=== PATIENT | female | born 1960 | race Hispanic/Latino ===

== ENCOUNTER 2016-12-16 14:07 | Emergency (ER) | payer MEDICARE, OTHER ==
[2016-12-16 14:08] VITALS: BMI 29.5
--- NOTE | 2016-12-16 15:13 | C.PDOC ---
History Of Present Illness 55 yr old female presents to the ER requesting detox from opioids. Patient states she was seen by Dr. Alvarado who gave her the wrong medication, then was refereed to Dr. Giordano who refused to see her since she had the wrong insurance. Patient states she has been to few different places and has been turned away from all. Patient is here stating she is withdrawing and wants detox. Patient denies fever, chest pain, SOB, nausea, vomiting, suicidal ideation, weakness or numbness. Time Seen by Provider: 12/16/16 15:05 Chief Complaint (Nursing): Anxiety History Per: Patient History/Exam Limitations: no limitations Onset/Duration Of Symptoms: Persistent Past Medical History Reviewed: Historical Data, Nursing Documentation, Vital Signs Vital Signs: Last Vital Signs Temp 98 F 12/16/16 16:24 Pulse 77 12/16/16 16:24 Resp 18 12/16/16 16:24 BP 150/100 H 12/16/16 16:24 Pulse Ox 99 12/16/16 16:24 - Medical History PMH: Anxiety, Arthritis, Asthma, Back Problems, Depression, Fibromyalgia, Gall Bladder Disease, HTN, Kidney Stones, Migraine, Chronic Kidney Disease, Chronic Pain Surgical History: Cholecystectomy (Laparoscopic), Endoscopy - [facility] Procedures EYELID REPAIR NEC (04/29/00) INJECT/INFUSE NEC (07/20/13) MYRINGOTOMY W INTUBATION (07/18/03) OTOSCOPY (12/14/03) REMOVE EYELID LESION NOS (04/29/00) Family History: States: No Known Family Hx - Social History Hx Tobacco Use: No Hx Alcohol Use: No Hx Substance Use: No - Immunization History Hx Tetanus Toxoid Vaccination: Yes Hx Influenza Vaccination: No Hx Pneumococcal Vaccination: No Review Of Systems Except As Marked, All Systems Reviewed And Found Negative. Constitutional: Negative for: Fever Cardiovascular: Negative for: Chest Pain Respiratory: Negative for: Shortness of Breath Gastrointestinal: Negative for: Nausea, Vomiting Neurological: Negative for: Weakness, Numbness Psych: Negative for: Suicidal ideation Physical Exam - Physical Exam Appears: Well, Non-toxic, No Acute Distress Skin: Warm, Dry, No Rash Head: Atraumatic, Normacephalic Oral Mucosa: Moist Neck: Normal, Normal ROM, Supple Chest: Symmetrical, No Tenderness Cardiovascular: Rhythm Regular, No Murmur Respiratory: Normal Breath Sounds, No Rales, No Wheezing Gastrointestinal/Abdominal: Normal Exam, Soft, No Tenderness, No Guarding, No Rebound Extremity: Normal ROM, No Swelling Neurological/Psych: Oriented x3, Normal Speech, Normal Motor ED Course And Treatment ECG: Interpreted By Me ECG Rhythm: Sinus Rhythm, L BBB ECG Interpretation: No Acute Changes, No Changes From Prior O2 Sat by Pulse Oximetry: 98 Pulse Ox Interpretation: Normal Progress Note: Patient presents with multiple complaints including being given the wrong medications last month by a pain management doctor Dr monte which has caused withdrawl symptoms. Patient was at pain management Dr prasanna prior to arrival in ED and was not evaluated due to insurance issues as per patient. Patient reports withdrawl symptoms and requests help with this issue. Case discussed and patient evaluated by drag out worker but patient refused list of outpatient services provided and detox admission. Patient was provided with lists of outpatient services for further evaluation and follow up. Patient reports she contacted Dr Pickard while in ED but does not want detox. Patient requesting management of her chronic pain and anxiety meds. Patient was encouraged by crisis and myself to follow up as outpatient with her PMD and pain management doctor. Discharged in stable condition Reassessment Condition: Unchanged Disposition Counseled Patient/Family Regarding: Studies Performed, Diagnosis, Need For Followup - Disposition Referrals: [facility] [Outside] [facility] [Outside] Disposition: HOME/ ROUTINE Disposition Time: 16:15 Condition: STABLE Additional Instructions: Follow up with PMD for further evaluation Instructions: Anxiety (ED) - POA Present On Arrival: None - Clinical Impression Clinical Impression: Anxiety, Opiate withdrawal - PA / FOREST MANAGEMENT TEACHER / Resident Statement MD/DO has reviewed & agrees with the documentation as recorded. - Scribe Statement The provider has reviewed the documentation as recorded by the Scribe Nessa Estrada All medical record entries made by the Scribe were at my direction and personally dictated by me. I have reviewed the chart and agree that the record accurately reflects my personal performance of the history, physical exam, medical decision making, and the department course for this patient. I have also personally directed, reviewed, and agree with the discharge instructions and disposition.
[2016-12-16 16:26] VITALS: BP 150/100; PULSE 77; RESP 18; TEMP 98
[2016-12-16 16:41] VITALS: O2SAT 98
== END 2016-12-16 16:55 | disposition home or self-care (01) ==
LOC: C.ER 14:07
DX: F41.9 Anxiety disorder, unspecified (principal); F11.23 Opioid dependence with withdrawal

== ENCOUNTER 2017-01-23 11:05 | Emergency (ER) | payer MEDICARE, SELFPAY ==
[2017-01-23 11:16] VITALS: BMI 30.7
--- NOTE | 2017-01-23 11:49 | C.PDOC ---
History Of Present Illness A 56 y/o female with previous medical history including arthritis, fibromyalgia , chronic pain, and sciatica, presents to the ER c/o back pain for several days. Patient reports that the pain started in the neck and radiated to the lower back. Patient notes her PMD changed her medication again and was given Meloxicam with no relief in pain. Patient denies injury, fall, fever, chills, numbness nor weakness, or urinary symptoms. Time Seen by Provider: 01/23/17 11:21 Chief Complaint (Nursing): Back Pain History Per: Patient History/Exam Limitations: no limitations Onset/Duration Of Symptoms: Days Current Symptoms Are (Timing): Still Present Quality Of Discomfort: "Pain" Severity: Mild Previous Symptoms: Neck Pain Associated Symptoms: denies: New Weakness, New Numbness Recent travel outside of the [place]: No Additional History Per: Patient Past Medical History Reviewed: Historical Data, Nursing Documentation, Vital Signs Vital Signs: Last Vital Signs Temp 98.5 F 01/23/17 12:52 Pulse 92 H 01/23/17 12:52 Resp 16 01/23/17 12:52 BP 151/93 H 01/23/17 12:52 Pulse Ox 96 01/23/17 12:52 - Medical History PMH: Anxiety, Arthritis, Asthma, Back Problems, Depression, Fibromyalgia, Gall Bladder Disease, HTN, Kidney Stones, Migraine, Chronic Kidney Disease, Chronic Pain Surgical History: Cholecystectomy (Laparoscopic), Endoscopy - [facility] Procedures EYELID REPAIR NEC (04/29/00) INJECT/INFUSE NEC (07/20/13) MYRINGOTOMY W INTUBATION (07/18/03) OTOSCOPY (12/14/03) REMOVE EYELID LESION NOS (04/29/00) Family History: States: Unknown Family Hx - Social History Hx Tobacco Use: No Hx Alcohol Use: No Hx Substance Use: No - Immunization History Hx Tetanus Toxoid Vaccination: Yes Hx Influenza Vaccination: No Hx Pneumococcal Vaccination: No Review Of Systems Except As Marked, All Systems Reviewed And Found Negative. Constitutional: Negative for: Fever, Chills, Other (Injury. Fall) Genitourinary: Negative for: Dysuria, Incontinence, Hematuria Musculoskeletal: Positive for: Back Pain Neurological: Negative for: Weakness, Numbness Physical Exam - Physical Exam Appears: Non-toxic, No Acute Distress (Uncomfortable) Skin: Warm, Dry Head: Atraumatic, Normacephalic Eye(s): bilateral: Normal Inspection Neck: Normal ROM, No Midline Cervical Tenderness, Paracervical Tenderness ( Tenderness to the trapezius muscle), Supple Cardiovascular: Rhythm Regular, No Murmur Respiratory: Normal Breath Sounds, No Rales, No Rhonchi, No Wheezing Gastrointestinal/Abdominal: Soft, No Tenderness, No Guarding, No Rebound Back: Normal Inspection, No CVA Tenderness, No Vertebral Tenderness, Paraspinal Tenderness (lumbosacral) Extremity: Bilateral: Atraumatic, No Pedal Edema, Normal Color And Temperature, Normal ROM Neurological/Psych: Oriented x3, Normal Speech, Other (No focal deficit) ED Course And Treatment O2 Sat by Pulse Oximetry: 97 (RA) Pulse Ox Interpretation: Normal Medical Decision Making Medical Decision Makin y.o female with chronic back pain, patient with multiple allergies Plan: Morphine IM [facility] reviewed 01/07/2017 ALPRAZOLAM 0.25 MG TABLET 30.0 12/22/2016 ALPRAZOLAM 0.25 MG TABLET 30.0 12/09/2016 ALPRAZOLAM 0.25 MG TABLET 30.0 12/06/2016 ENDOCET 5-325 TABLET 56.0 On reassessment, patient is resting comfortably, with improvement of back pain. Patient remains afebrile, with no bony tenderness, extremity numbness or weakness, or abdominal pain. Patient is ambulatory in the emergency department with no signs of discomfort. Patient was advised to follow up with physician/ clinic in 1-2 days. Disposition Counseled Patient/Family Regarding: Diagnosis, Need For Followup - Disposition Referrals: Abel Ayoub MD [Staff Provider] - Disposition: HOME/ ROUTINE Disposition Time: 12:29 Condition: STABLE Additional Instructions: follow up with your primary physician for further evaluation Instructions: Chronic Back Pain (ED) - POA Present On Arrival: None - Clinical Impression Clinical Impression: Chronic back pain - Scribe Statement The provider has reviewed the documentation as recorded by the Scribshahnaz allen All medical record entries made by the Scribe were at my direction and personally dictated by me. I have reviewed the chart and agree that the record accurately reflects my personal performance of the history, physical exam, medical decision making, and the department course for this patient. I have also personally directed, reviewed, and agree with the discharge instructions and disposition.
[2017-01-23] MEDS ORDERED: Morphine 4 MG/ML VIAL ONE (11:50)
[2017-01-23 12:53] VITALS: BP 151/93; PULSE 92; RESP 16; TEMP 98.5
[2017-01-23 13:13] VITALS: O2SAT 97
== END 2017-01-23 12:53 | disposition home or self-care (01) ==
LOC: C.ER 11:05
DX: M54.9 Dorsalgia, unspecified (principal); G89.29 Other chronic pain
CPT/HCPCS: 96372; 99284; J2270

== ENCOUNTER 2017-01-25 08:19 | Emergency (ER) | payer MEDICARE, SELFPAY ==
[2017-01-25 08:20] VITALS: BMI 30.7
[2017-01-25 08:35] VITALS: BP 147/95; PULSE 99; RESP 20; TEMP 98.2; O2SAT 95
--- NOTE | 2017-01-25 09:03 | C.PDOC ---
History Of Present Illness 56 yo female, hx of fibromyalgia, presents with rash and "burning " across her chest. pt states started yesterday, as "Burning rash" across chest. pt states rash improving now. no fevers, trauma or other complaints. noted pt has been seen numerous times for various complaints, including back pain 2 days ago. Time Seen by Provider: 01/25/17 08:56 Chief Complaint (Nursing): Allergic Reaction Past Medical History Reviewed: Historical Data, Nursing Documentation, Vital Signs Vital Signs: Last Vital Signs Temp 98.2 F 01/25/17 08:27 Pulse 99 H 01/25/17 08:27 Resp 20 01/25/17 08:27 BP 147/95 H 01/25/17 08:27 Pulse Ox 95 01/25/17 08:27 - Medical History PMH: Anxiety, Arthritis, Asthma, Back Problems, Depression, Fibromyalgia, Gall Bladder Disease, HTN, Kidney Stones, Migraine, Chronic Kidney Disease, Chronic Pain Surgical History: Cholecystectomy (Laparoscopic), Endoscopy - [facility] Procedures EYELID REPAIR NEC (04/29/00) INJECT/INFUSE NEC (07/20/13) MYRINGOTOMY W INTUBATION (07/18/03) OTOSCOPY (12/14/03) REMOVE EYELID LESION NOS (04/29/00) Family History: States: Unknown Family Hx - Social History Hx Tobacco Use: No Hx Alcohol Use: No Hx Substance Use: No - Immunization History Hx Tetanus Toxoid Vaccination: No Hx Influenza Vaccination: No Hx Pneumococcal Vaccination: No Review Of Systems Except As Marked, All Systems Reviewed And Found Negative. Skin: Positive for: Rash Physical Exam - Physical Exam Appears: Well, No Acute Distress Skin: Normal Color, Warm, Dry Eye(s): bilateral: Normal Inspection, PERRL, EOMI Nose: Normal Throat: Normal Neck: Normal Chest: Other (no visible rash) Cardiovascular: Rhythm Regular Respiratory: Normal Breath Sounds Gastrointestinal/Abdominal: Normal Exam Back: Normal Inspection Extremity: Normal ROM ED Course And Treatment O2 Sat by Pulse Oximetry: 95 Medical Decision Making Medical Decision Making: ekg nsr 99 old lbbb. pt reports rash now resolved. advised supportive treatment , pmd followup. Disposition - Disposition Referrals: [facility] [Outside] [facility] [Outside] Yancy Claire MD [Medical Doctor] - Disposition: HOME/ ROUTINE Disposition Time: 09:03 Condition: STABLE Additional Instructions: please follow up with your doctor. and specialist. return to er with worsening symptoms or concerns. Prescriptions: DiphenhydrAMINE [Benadryl] 25 mg PO Q4H PRN #20 cap PRN Reason: Rash Instructions: Acute Rash (ED) - Clinical Impression Clinical Impression: Rash
--- NOTE | 2017-02-16 12:21 | CARD ---
APPROVED REPORT EKG Measurement Heart [id number] DC [id number] <Conclusion> Normal sinus rhythm Left bundle branch block Abnormal ECG
== END 2017-01-25 09:12 | disposition home or self-care (01) ==
LOC: C.ER 08:19
DX: R21 Rash and other nonspecific skin eruption (principal)

== ENCOUNTER 2017-02-08 16:56 | Emergency (ER) | payer MEDICARE, SELFPAY ==
[2017-02-08 16:56] VITALS: BMI 30.7
[2017-02-08] MEDS ORDERED: Aspirin 325 mg EC Tablets PO STA (17:30)
[2017-02-08 17:55] LABS: BASO # 0.1 K/uL (0.0-0.2); BASO % 0.8 % (0.0-2.0); EOS # 0.2 K/uL (0.0-0.7); EOS % 2.6 % (0.0-4.0); LYMPH # 2.1 K/uL (1.0-4.3); LYMPH % 23.5 % (20.0-40.0); MEAN CELL VOLUME 86.7 fL (81.0-99.0); MEAN CORPUSCULAR HGB CONC 33.4 g/dL (33.0-37.0); MEAN PLATELET VOLUME 7.6 fL (7.2-11.7); MONO # 0.7 K/uL (0.0-0.8); MONO % 8.1 % (0.0-10.0); NRBC % 0.1 % (0.0-2.0); RED CELL DISTRIBUTION WIDTH 14.4 % (11.5-14.5); WHITE BLOOD COUNT 9.1 K/uL (4.8-10.8)
[2017-02-08 17:58] LABS: CHLORIDE 102 mmol/L (98-107)
[2017-02-08 17:59] LABS: POTASSIUM 3.3 mmol/L (3.6-5.2); SODIUM 141 mmol/L (132-148)
[2017-02-08 18:01] LABS: ALB/GLOB RATIO 1.3 (1.0-2.1); ALKALINE PHOSPHATASE 116 U/L (38-126); ALT/SGPT 24 U/L (9-52); AST/SGOT 24 U/L (14-36); BILIRUBIN,TOTAL 0.7 mg/dL (0.2-1.3); BLOOD UREA NITROGEN 8 mg/dL (7-17); CARBON DIOXIDE 26 mmol/L (22-30); GFR AFRICAN-AMERICAN > 60; TOTAL PROTEIN 8.1 g/dL (6.3-8.3)
[2017-02-08 18:02] LABS: CALCIUM 8.9 mg/dl (8.6-10.4); GLUCOSE,RANDOM 108 mg/dL (65-105)
[2017-02-08 18:04] LABS: RBC URINE 1 /hpf (0-3); TRANSITIONAL EPITHIAL < 1 /hpf (0-3); URINE BACTERIA OCC (<OCC); URINE BILIRUBIN NEGATIVE (NEGATIVE); URINE BLOOD NEGATIVE (NEGATIVE); URINE COLOR Straw (YELLOW); URINE GLUCOSE (UA) NORMAL (Normal); URINE KETONE NEGATIVE (NEGATIVE); URINE LEUKOCYTE ESTERASE 1+ Leu/uL (Negative); URINE PROTEIN NEGATIVE (NEGATIVE); WBC URINE 10 /hpf (0-5)
--- NOTE | 2017-02-08 18:46 | C.PDOC ---
History Of Present Illness 56 y/o female brought in by EMS for evaluation of anxiety and chronic back pain. Pt with extensive percocet/xanax regimen recently discontinued. Pt lost to follow up for treatment of chronic pain/psych. Denies SOB, chest pain, vomiting or any other complaints. Time Seen by Provider: 02/08/17 17:19 Chief Complaint (Nursing): Back Pain History Per: Patient History/Exam Limitations: no limitations Onset/Duration Of Symptoms: Days Current Symptoms Are (Timing): Still Present Severity: Mild Associated Symptoms: Anxiety Involuntary Hold By: None Recent travel outside of the [place]: No Past Medical History Reviewed: Historical Data, Nursing Documentation, Vital Signs Vital Signs: Last Vital Signs Temp 98.7 F 02/08/17 19:20 Pulse 100 H 02/08/17 19:20 Resp 18 02/08/17 19:20 BP 162/94 H 02/08/17 19:20 Pulse Ox 98 02/08/17 19:20 - Medical History PMH: Anxiety, Arthritis, Asthma, Back Problems, Depression, Fibromyalgia, Gall Bladder Disease, HTN, Kidney Stones, Migraine, Chronic Kidney Disease, Chronic Pain Surgical History: Cholecystectomy (Laparoscopic), Endoscopy - [facility] Procedures EYELID REPAIR NEC (04/29/00) INJECT/INFUSE NEC (07/20/13) MYRINGOTOMY W INTUBATION (07/18/03) OTOSCOPY (12/14/03) REMOVE EYELID LESION NOS (04/29/00) Family History: States: Unknown Family Hx - Social History Hx Tobacco Use: No Hx Alcohol Use: No Hx Substance Use: No - Immunization History Hx Tetanus Toxoid Vaccination: No Hx Influenza Vaccination: No Hx Pneumococcal Vaccination: No Review Of Systems Except As Marked, All Systems Reviewed And Found Negative. Constitutional: Negative for: Fever Cardiovascular: Negative for: Chest Pain Respiratory: Negative for: Shortness of Breath Gastrointestinal: Negative for: Vomiting Musculoskeletal: Positive for: Back Pain Psych: Positive for: Anxiety Physical Exam - Physical Exam Appears: Non-toxic, No Acute Distress Skin: Warm, Dry, No Rash Head: Atraumatic, Normacephalic Neck: Normal, Normal ROM, Supple Chest: Symmetrical Cardiovascular: Rhythm Regular, No Murmur Respiratory: Normal Breath Sounds, No Rales, No Rhonchi, No Wheezing Back: Normal Inspection Extremity: Bilateral: Atraumatic Neurological/Psych: Oriented x3, Normal Speech (pressured), Other (anxious, argumentative) ED Course And Treatment - Laboratory Results Result Diagrams: 02/08/17 17:45 02/08/17 17:45 Lab Interpretation: Normal (trop neg, UDS neg) Urine POC: Negative ECG: Interpreted By Me ECG Rhythm: Sinus Rhythm, L BBB ECG Interpretation: Normal, No Changes From Prior (12/03/16) Rate From EC (BPM) O2 Sat by Pulse Oximetry: 96 (room air) Pulse Ox Interpretation: Normal - Radiology CXR: Interpreted by Me CXR Interpretation: Yes: No Acute Disease Progress Note: asa, xanax 0.25 po, labs, CXR, IV fluids. Spoke to Dr Pickard who correlated patients extensive psych history. - Physician Consult Information Outcome Of Conversation: 1730: d/w Dr. Pickard- reinforces pt's h/o of mental illness/anxiety and extensive perocet/xanax habit, now off both for > 1 month Medical Decision Making Medical Decision Making: anxiety/panic, normal cardiac work (old LBBB) off all controlled substances and could benefit from outpatient psych eval. Though [facility] report shared with pt (to view only) pt adamant these are not her prescriptions- poor insight. Disposition Doctor Will See Patient In The: Office Counseled Patient/Family Regarding: Studies Performed, Diagnosis - Disposition Referrals: [facility] [Outside] [facility] [Outside] Jose Pickard MD [Staff Provider] - Disposition: HOME/ ROUTINE Disposition Time: 18:47 Condition: GOOD Additional Instructions: please follow-up with Dr. Pickard and outpatient psych services ([facility]) regarding your longstanding anxiety and chronic pain/fibromyalgia issues - they can help you. Instructions: Chronic Back Pain (ED), Anxiety (ED) - Clinical Impression Clinical Impression: Chronic pain, Anxiety - Scribe Statement The provider has reviewed the documentation as recorded by the Bruno Romero Provider Attestation: All medical record entries made by the [place] were at my direction and personally dictated by me. I have reviewed the chart and agree that the record accurately reflects my personal performance of the history, physical exam, medical decision making, and the department course for this patient. I have also personally directed, reviewed, and agree with the discharge instructions and disposition.
[2017-02-08 19:21] VITALS: BP 162/94; PULSE 100; RESP 18; TEMP 98.7
[2017-02-08 19:54] VITALS: O2SAT 96
--- NOTE | 2017-02-09 07:28 | RAD ---
PROCEDURE: CHEST RADIOGRAPH, 1 VIEW HISTORY: Shortness of breath COMPARISON: 06/12/2015 FINDINGS: LUNGS: Mild venous congestion. Left hilar prominence. Patchy increased markings at the left lung base. Biapical pleural thickening with upper lobe granulomatous changes. PLEURA: No pneumothorax or pleural fluid seen. CARDIOVASCULAR: Normal. OSSEOUS STRUCTURES: No significant abnormalities. VISUALIZED UPPER ABDOMEN: Normal. OTHER FINDINGS: None. IMPRESSION: Mild venous congestion. Left hilar prominence. Patchy increased markings at the left lung base. Biapical pleural thickening with upper lobe granulomatous changes.
--- NOTE | 2017-02-09 11:50 | CARD ---
APPROVED REPORT EKG Measurement Heart [id number] PA [id number] <Conclusion> Sinus tachycardia Left bundle branch block Abnormal ECG
== END 2017-02-08 19:22 | disposition home or self-care (01) ==
LOC: C.ER 16:56
DX: F41.9 Anxiety disorder, unspecified (principal); G89.29 Other chronic pain; M79.7 Fibromyalgia; I12.9 Hypertensive chronic kidney disease with stage 1 through stage 4 chronic kidney disease, or unspecified chronic kidney disease; N18.9 Chronic kidney disease, unspecified; M19.90 Unspecified osteoarthritis, unspecified site
CPT/HCPCS: 71010; 80053; 81001; 84484; 85025; 93005; 99285; G0480

== ENCOUNTER 2017-02-22 15:41 | Emergency (ER) | payer MEDICARE ==
[2017-02-22 15:41] VITALS: BMI 30.7
[2017-02-22 16:11] VITALS: O2SAT 98
[2017-02-22] MEDS ORDERED: Belladonna-Phenobarbital PO STA (18:26)
[2017-02-22] MEDS ORDERED: Lactated Ringer's 1,000 ML IVB ONE (18:27)
[2017-02-22] MEDS ORDERED: Lactated Ringer's 1,000 ML ONE (18:52)
[2017-02-22] MEDS ORDERED: Belladonna-Phenobarbital ONE (18:52)
[2017-02-22 19:03] LABS: BASO # 0.1 K/uL (0.0-0.2); BASO % 0.6 % (0.0-2.0); EOS # 0.1 K/uL (0.0-0.7); EOS % 0.9 % (0.0-4.0); HEMATOCRIT 42.1 % (34.0-47.0); LYMPH # 2.7 K/uL (1.0-4.3); LYMPH % 25.7 % (20.0-40.0); MEAN CELL VOLUME 87.9 fL (81.0-99.0); MEAN CORPUSCULAR HEMOGLOBIN 28.8 pg (27.0-31.0); MEAN CORPUSCULAR HGB CONC 32.8 g/dL (33.0-37.0); MEAN PLATELET VOLUME 8.2 fL (7.2-11.7); MONO # 0.6 K/uL (0.0-0.8); MONO % 5.8 % (0.0-10.0); RED CELL DISTRIBUTION WIDTH 13.9 % (11.5-14.5); WHITE BLOOD COUNT 10.5 K/uL (4.8-10.8)
[2017-02-22 19:12] LABS: CHLORIDE 100 mmol/L (98-107); SODIUM 138 mmol/L (132-148)
[2017-02-22 19:12] LABS: RBC URINE 1 /hpf (0-3); RENAL EPITHELIAL < 1 /hpf (0-3); URINE BACTERIA OCC (<OCC); URINE BILIRUBIN NEGATIVE (NEGATIVE); URINE BLOOD NEGATIVE (NEGATIVE); URINE COLOR Straw (YELLOW); URINE GLUCOSE (UA) NORMAL (Normal); URINE KETONE NEGATIVE (NEGATIVE); URINE LEUKOCYTE ESTERASE 2+ Leu/uL (Negative); URINE PROTEIN NEGATIVE (NEGATIVE); URINE UROBILINOGEN NORMAL mg/dL (0.2-1.0); WBC URINE 14 /hpf (0-5)
[2017-02-22 19:13] LABS: POTASSIUM 3.6 mmol/L (3.6-5.2)
[2017-02-22 19:14] LABS: GFR AFRICAN-AMERICAN > 60
[2017-02-22 19:15] LABS: ALB/GLOB RATIO 1.8 (1.0-2.1); ALKALINE PHOSPHATASE 147 U/L (38-126); ALT/SGPT 27 U/L (9-52); AST/SGOT 28 U/L (14-36); BILIRUBIN,TOTAL 0.6 mg/dL (0.2-1.3); BLOOD UREA NITROGEN 8 mg/dL (7-17); CARBON DIOXIDE 19 mmol/L (22-30); GLUCOSE,RANDOM 87 mg/dL (65-105)
[2017-02-22 19:16] LABS: CALCIUM 9.4 mg/dl (8.6-10.4)
--- NOTE | 2017-02-22 19:44 | C.PDOC ---
Time Seen by Provider: 02/22/17 17:42 Chief Complaint (Nursing): GI Problem History Per: Patient Onset/Duration Of Symptoms: Days (month) Current Symptoms Are (Timing): Still Present Severity: Moderate Location Of Pain/Discomfort: Epigastric Associated Symptoms: Diarrhea (watery) Last Bowel Movement: Today Additional History Per: Prior Records Past Medical History Reviewed: Historical Data, Nursing Documentation, Vital Signs Vital Signs: Last Vital Signs Temp 98.1 F 02/22/17 16:06 Pulse 116 H 02/22/17 16:06 Resp 16 02/22/17 16:06 BP 123/91 H 02/22/17 16:06 Pulse Ox 98 02/22/17 16:06 - Medical History PMH: Anxiety, Arthritis, Asthma, Back Problems, Depression, Fibromyalgia, Gall Bladder Disease, HTN, Kidney Stones, Migraine, Chronic Kidney Disease, Chronic Pain Surgical History: Cholecystectomy (Laparoscopic), Endoscopy - [facility] Procedures EYELID REPAIR NEC (04/29/00) INJECT/INFUSE NEC (07/20/13) MYRINGOTOMY W INTUBATION (07/18/03) OTOSCOPY (12/14/03) REMOVE EYELID LESION NOS (04/29/00) Family History: States: Unknown Family Hx - Social History Hx Tobacco Use: No Hx Alcohol Use: No Hx Substance Use: No - Immunization History Hx Tetanus Toxoid Vaccination: No Hx Influenza Vaccination: No Hx Pneumococcal Vaccination: No Review Of Systems Except As Marked, All Systems Reviewed And Found Negative. Constitutional: Negative for: Fever, Weakness Cardiovascular: Negative for: Chest Pain Respiratory: Negative for: Shortness of Breath Gastrointestinal: Positive for: Abdominal Pain, Diarrhea. Negative for: Vomiting, Melena, Hematochezia, Hematemesis Musculoskeletal: Negative for: Neck Pain Skin: Negative for: Rash Neurological: Negative for: Weakness, Numbness, Seizures, Altered Mental Status Physical Exam - Physical Exam Appears: Non-toxic, No Acute Distress Skin: Normal Color, Warm, Dry, No Rash Head: Atraumatic, Normacephalic Eye(s): bilateral: PERRL, EOMI Oral Mucosa: Moist Neck: Normal ROM, Supple Cardiovascular: Rhythm Regular Respiratory: Normal Breath Sounds, No Accessory Muscle Use Gastrointestinal/Abdominal: Soft, No Tenderness Back: No CVA Tenderness Extremity: Normal ROM Neurological/Psych: Oriented x3, Normal Motor, Normal Sensation ED Course And Treatment - Laboratory Results Result Diagrams: 02/22/17 18:49 02/22/17 18:49 Lab Interpretation: No Acute Changes Interpretation Of Abnormal: C. diff negative O2 Sat by Pulse Oximetry: 98 Pulse Ox Interpretation: Normal Progress - Interventions Interventions:: Observation, Intravenous fluid - Data Reviewed Data Reviewed: Lab, Old records - Patient Status Patient status: Mostly improved - Continuity of Care Discussed patient case with:: Patient, ED Nurse - Patient Plan Patient Plan: Discharge, F/U with PCP, Continue present meds Disposition Counseled Patient/Family Regarding: Studies Performed, Diagnosis, Need For Followup - Disposition Referrals: Abel Ayoub MD [Staff Provider] - George Little MD [Staff Provider] - Disposition: HOME/ ROUTINE Disposition Time: 19:44 Condition: IMPROVED Additional Instructions: Follow up with a [facility] within 1 week for further evaluation and treatment. Return to the ER if you develop fever, vomiting, bloody stools, worsening of symptoms or if you have any other concerns. Instructions: Chronic Diarrhea (ED) - Clinical Impression Clinical Impression: Chronic diarrhea
[2017-02-22 19:52] VITALS: BP 121/83; PULSE 92; RESP 18
[2017-02-22 19:57] VITALS: TEMP 97.6
== END 2017-02-22 20:02 | disposition home or self-care (01) ==
LOC: C.ER 15:41
DX: K52.9 Noninfective gastroenteritis and colitis, unspecified (principal)
CPT/HCPCS: 80053; 81001; 83690; 85025; 87230; 96374; 99285; J7120

== ENCOUNTER 2017-04-09 21:53 | Emergency (ER) | payer MEDICARE ==
[2017-04-09 21:53] VITALS: BMI 30.7
[2017-04-09 22:25] VITALS: RESP 16; TEMP 97.9
--- NOTE | 2017-04-09 23:37 | C.PDOC ---
History Of Present Illness 56 year old female who presents to the ER with a complaint of worsening anxiety. Patient has a Hx of anxiety and depression; she has multiple vague physical complaints, reports trying new medication and concentration to help with her anxiety. Denies nausea, vomiting, headache, dizziness, chest pain, or SOB. Time Seen by Provider: 04/09/17 23:29 Chief Complaint (Nursing): Weakness/Neurological Deficit History Per: Patient History/Exam Limitations: no limitations Onset/Duration Of Symptoms: Days Current Symptoms Are (Timing): Still Present Seizure Or Post-ictal Symptoms: None Fall Associated With With Symptoms: No Recent travel outside of the [place]: No - Symptoms Of CVA Associated Symptoms: denies: Impaired Speech, Seizure Activity, New Vision Deficit(Left), New Vision Deficit(Right), Decreased Ability To Walk, New Confusion Past Medical History Reviewed: Historical Data, Nursing Documentation, Vital Signs Vital Signs: Last Vital Signs Temp 97.9 F 04/09/17 22:10 Pulse 94 H 04/09/17 23:42 Resp 16 04/09/17 23:42 BP 132/93 H 04/09/17 23:42 Pulse Ox 96 04/10/17 03:30 - Medical History PMH: Anxiety, Arthritis, Asthma, Back Problems, Depression, Fibromyalgia, Gall Bladder Disease, HTN, Kidney Stones, Migraine, Chronic Kidney Disease, Chronic Pain Surgical History: Cholecystectomy (Laparoscopic), Endoscopy - [facility] Procedures EYELID REPAIR NEC (04/29/00) INJECT/INFUSE NEC (07/20/13) MYRINGOTOMY W INTUBATION (07/18/03) OTOSCOPY (12/14/03) REMOVE EYELID LESION NOS (04/29/00) Family History: States: Unknown Family Hx - Social History Hx Tobacco Use: No Hx Alcohol Use: No Hx Substance Use: No - Immunization History Hx Tetanus Toxoid Vaccination: No Hx Influenza Vaccination: No Hx Pneumococcal Vaccination: No Review Of Systems Constitutional: Negative for: Fever, Chills Cardiovascular: Negative for: Chest Pain, Palpitations Respiratory: Negative for: Shortness of Breath Musculoskeletal: Positive for: Neck Pain. Negative for: Shoulder Pain, Arm Pain Neurological: Positive for: Headache. Negative for: Weakness, Numbness, Dizziness Physical Exam - Physical Exam Appears: Non-toxic, No Acute Distress Skin: Normal Color, Warm, Dry Head: Atraumatic, Normacephalic Eye(s): bilateral: Normal Inspection, PERRL, EOMI Oral Mucosa: Moist Neck: Normal, Supple Chest: Symmetrical, No Tenderness Cardiovascular: Rhythm Regular, No Murmur Respiratory: Normal Breath Sounds, No Rales, No Rhonchi, No Wheezing Gastrointestinal/Abdominal: Soft, No Tenderness Neurological/Psych: Oriented x3, Normal Speech, Normal Cognition ED Course And Treatment ECG: Interpreted By Me, Viewed By Me ECG Rhythm: Sinus Rhythm ECG Interpretation: Normal Rate From EC O2 Sat by Pulse Oximetry: 96 (Room air) Pulse Ox Interpretation: Normal Progress Note: Xanax administered. Medical Decision Making Medical Decision Making: recurrent anxiety, normal exam xanax only. Disposition Doctor Will See Patient In The: Office Counseled Patient/Family Regarding: Studies Performed, Diagnosis - Disposition Referrals: Abel Ayoub MD [Staff Provider] - Disposition: HOME/ ROUTINE Disposition Time: 23:36 Condition: GOOD Additional Instructions: continue with Dr. Ayoub Continue meditation and calming exercises Instructions: Anxiety (ED) Forms: [employer] [facility] (Malay) - Clinical Impression Clinical Impression: Anxiety - Scribe Statement The provider has reviewed the documentation as recorded by the Scribe Tima Medrano All medical record entries made by the Scribe were at my direction and personally dictated by me. I have reviewed the chart and agree that the record accurately reflects my personal performance of the history, physical exam, medical decision making, and the department course for this patient. I have also personally directed, reviewed, and agree with the discharge instructions and disposition.
[2017-04-09 23:43] VITALS: BP 132/93; PULSE 94
[2017-04-10 03:30] VITALS: O2SAT 96
--- NOTE | 2017-04-14 19:32 | CARD ---
APPROVED REPORT EKG Measurement Heart [id number] ND [id number] <Conclusion> Normal sinus rhythm Left bundle branch block Abnormal ECG
== END 2017-04-09 23:45 | disposition home or self-care (01) ==
LOC: C.ER 21:53
DX: F41.9 Anxiety disorder, unspecified (principal)

== ENCOUNTER 2017-05-11 11:11 | Emergency (ER) | payer MEDICARE ==
[2017-05-11 11:19] VITALS: BMI 30.6
[2017-05-11] MEDS ORDERED: Sodium Chloride 0.9% 1,000 ML IV ONE (11:43)
--- NOTE | 2017-05-11 11:47 | C.PDOC ---
History Of Present Illness Patient is a 56 y/o female, with a PMHx of anxiety, arthritis, asthma, fibromyalgia, and HTN, who presents to the ED with a complaint of mid-sternal intermittent chest tightness for the past 3 days. Patient states she applied lidoderm cream to the area with no relief. Also, patient notes associated mild upper abdominal pain which she attributes to antibiotic. She was diagnosed with ear infection and ear pain has improved, and has 2 days left of antibiotic. Denies SOB, fever, nausea, numbness/weakness. Admits to feeling anxious due to pain; patient has appointment with psychiatrist today at 2:00pm. Time Seen by Provider: 05/11/17 11:29 Chief Complaint (Nursing): Chest Pain History Per: Patient History/Exam Limitations: no limitations Onset/Duration Of Symptoms: Days (symptoms present for 3 days. ) Current Symptoms Are (Timing): Still Present Quality: Tightness Associated Symptoms: denies: Nausea Recent travel outside of the [place]: No Past Medical History Reviewed: Historical Data, Nursing Documentation, Vital Signs Vital Signs: Last Vital Signs Temp 98.9 F 05/11/17 13:03 Pulse 86 05/11/17 13:03 Resp 18 05/11/17 13:03 BP 124/85 05/11/17 13:03 Pulse Ox 97 05/11/17 13:03 - Medical History PMH: Anxiety, Arthritis, Asthma, Back Problems, Depression, Fibromyalgia, Gall Bladder Disease, HTN, Kidney Stones, Migraine, Chronic Kidney Disease, Chronic Pain Surgical History: Cholecystectomy (Laparoscopic), Endoscopy - [facility] Procedures EYELID REPAIR NEC (04/29/00) INJECT/INFUSE NEC (07/20/13) MYRINGOTOMY W INTUBATION (07/18/03) OTOSCOPY (12/14/03) REMOVE EYELID LESION NOS (04/29/00) Family History: States: Unknown Family Hx - Social History Hx Tobacco Use: No Hx Alcohol Use: No Hx Substance Use: No - Immunization History Hx Tetanus Toxoid Vaccination: No Hx Influenza Vaccination: No Hx Pneumococcal Vaccination: No Review Of Systems Constitutional: Negative for: Fever, Chills Respiratory: Negative for: Shortness of Breath, Wheezing Gastrointestinal: Positive for: Abdominal Pain (upper abdominal pain). Negative for: Nausea, Vomiting, Diarrhea Musculoskeletal: Positive for: Other (chest wall pain) Skin: Negative for: Rash Neurological: Negative for: Weakness, Numbness Psych: Positive for: Anxiety Physical Exam - Physical Exam Appears: Non-toxic, No Acute Distress, Other (anxious) Skin: Normal Color, Warm, Dry Head: Atraumatic, Normacephalic Eye(s): bilateral: Normal Inspection Oral Mucosa: Moist Neck: Normal ROM Chest: Symmetrical, Tenderness (mid-sternal chest wall ) Cardiovascular: Rhythm Regular, No Murmur Respiratory: Normal Breath Sounds, No Rales, No Rhonchi, No Wheezing Gastrointestinal/Abdominal: Soft, No Tenderness, No Guarding, No Rebound Back: Normal Inspection, No CVA Tenderness Extremity: Bilateral: Atraumatic, Normal Color And Temperature, Normal ROM Neurological/Psych: Oriented x3, Normal Speech Gait: Steady ED Course And Treatment - Laboratory Results Result Diagrams: 05/11/17 12:08 05/11/17 12:08 Lab Interpretation: No Acute Changes ECG: Interpreted By Me, Viewed By Me ECG Rhythm: Sinus Rhythm, L BBB ECG Interpretation: No Acute Changes, No Changes From Prior (04/09/2017) Rate From EC (bpm) O2 Sat by Pulse Oximetry: 98 (Room air ) Pulse Ox Interpretation: Normal - Radiology CXR: Interpreted by Me, Viewed By Me CXR Interpretation: Yes: No Acute Disease Medical Decision Making Medical Decision Making: Impression: Chest tightness, likely musculoskeletal Prior records reviewed: Patient seen and admitted 04/09/17 for anxiety. Patient has multiple ER visits for anxiety, pain syndromes Plan: * blood work, CXR, and UA ordered. * Tylenol 975mg and IV fluids administered Progress: Labs reviewed and unremarkable, neg troponin. EKG shows no acute findings or changes from prior. CXR shows no acute disease. Based on history, exam and no acute findings during ED evaluation testing this is unlikely ACS or cardiac etiology. On reevaluation patient resting comfortably and reports feeling better. Vital signs stable. Advise patient to follow up with her psych and PCP. Disposition Counseled Patient/Family Regarding: Diagnosis, Need For Followup - Disposition Referrals: Abel Ayoub MD [Staff Provider] - Disposition: HOME/ ROUTINE Disposition Time: 12:51 Condition: IMPROVED Additional Instructions: Follow up with your primary medical doctor or clinic in 2-5 days for further evaluation. Take your usual medications as prescribed. Return to the emergency department at any time if symptoms persist or worsen. Instructions: Chest Pain (DC), Anxiety (ED) Forms: [employer] [employer] [facility] (Vietnamese) - POA Present On Arrival: None - Clinical Impression Clinical Impression: Chest discomfort, Anxiety - PA / [employer] / Resident Statement MD/DO has reviewed & agrees with the documentation as recorded. - Scribe Statement The provider has reviewed the documentation as recorded by the Scribe Mare Christiansen All medical record entries made by the Scribe were at my direction and personally dictated by me. I have reviewed the chart and agree that the record accurately reflects my personal performance of the history, physical exam, medical decision making, and the department course for this patient. I have also personally directed, reviewed, and agree with the discharge instructions and disposition.
[2017-05-11] MEDS ORDERED: Sodium Chloride 0.9% 1,000 ML ONE (11:53)
[2017-05-11 12:07] LABS: RBC URINE 3 /hpf (0-3); URINE BACTERIA RARE (<OCC); URINE BILIRUBIN NEGATIVE (NEGATIVE); URINE BLOOD NEGATIVE (NEGATIVE); URINE COLOR Yellow (YELLOW); URINE GLUCOSE (UA) NORMAL (Normal); URINE KETONE NEGATIVE (NEGATIVE); URINE LEUKOCYTE ESTERASE 2+ Leu/uL (Negative); URINE PROTEIN NEGATIVE (NEGATIVE); URINE UROBILINOGEN NORMAL mg/dL (0.2-1.0); WBC URINE 13 /hpf (0-5)
[2017-05-11 12:13] LABS: BASO # 0.1 K/uL (0.0-0.2); BASO % 0.8 % (0.0-2.0); EOS # 0.1 K/uL (0.0-0.7); EOS % 1.5 % (0.0-4.0); LYMPH # 1.9 K/uL (1.0-4.3); MEAN CORPUSCULAR HEMOGLOBIN 29.3 pg (27.0-31.0); MEAN CORPUSCULAR HGB CONC 34.4 g/dL (33.0-37.0); MEAN PLATELET VOLUME 7.5 fL (7.2-11.7); MONO # 0.5 K/uL (0.0-0.8); MONO % 5.7 % (0.0-10.0); NRBC % 0.1 % (0.0-2.0); RED CELL DISTRIBUTION WIDTH 13.5 % (11.5-14.5); WHITE BLOOD COUNT 8.5 K/uL (4.8-10.8)
[2017-05-11 12:18] LABS: MEAN CELL VOLUME 85.2 fL (81.0-99.0)
[2017-05-11 12:23] LABS: ALB/GLOB RATIO 1.2 (1.0-2.1); ALKALINE PHOSPHATASE 117 U/L (38-126); ALT/SGPT 29 U/L (9-52); AST/SGOT 25 U/L (14-36); BILIRUBIN,TOTAL 0.4 mg/dL (0.2-1.3); BLOOD UREA NITROGEN 10 mg/dL (7-17); CALCIUM 9.4 mg/dl (8.6-10.4); CARBON DIOXIDE 22 mmol/L (22-30); CHLORIDE 101 mmol/L (98-107); GFR AFRICAN-AMERICAN > 60; GLUCOSE,RANDOM 140 mg/dL (65-105); SODIUM 140 mmol/L (132-148); TOTAL PROTEIN 7.6 g/dL (6.3-8.3)
--- NOTE | 2017-05-11 12:30 | RAD ---
HISTORY: chest pain COMPARISON: Comparison made with chest radiograph dated 02/08/17. TECHNIQUE: Chest PA and lateral FINDINGS: LUNGS: No acute consolidation however there appears be some minor or scarring changes left lung base. PLEURA: No significant pleural effusion identified. No pneumothorax apparent. Questionable minimal pleural thickening right lateral upper chinedu thorax. CARDIOVASCULAR: Normal. OSSEOUS STRUCTURES: Minor multilevel degenerative spondylosis of thoracic spine. VISUALIZED UPPER ABDOMEN: Normal. OTHER FINDINGS: None. IMPRESSION: Minor atelectasis with scarring changes left lung base however no acute consolidation.
[2017-05-11 13:04] VITALS: BP 124/85; PULSE 86; RESP 18; TEMP 98.9
[2017-05-11 14:37] VITALS: O2SAT 98
--- NOTE | 2017-05-13 18:27 | CARD ---
APPROVED REPORT EKG Measurement Heart [id number] MS [id number] <Conclusion> Normal sinus rhythm Left bundle branch block Abnormal ECG
== END 2017-05-11 13:19 | disposition home or self-care (01) ==
LOC: C.ER 11:11
DX: R07.89 Other chest pain (principal); F41.9 Anxiety disorder, unspecified
CPT/HCPCS: 71020; 80053; 81001; 84484; 85025; 93005; 99284; J7040

== ENCOUNTER 2017-12-08 18:28 | Emergency (ER) | payer MEDICARE, OTHER ==
[2017-12-08 18:28] VITALS: BMI 30.6
[2017-12-08 18:37] VITALS: RESP 20
--- NOTE | 2017-12-08 19:36 | C.PDOC ---
History Of Present Illness 56yo female, with history of fibromyalgia presents to ED with complaints of diffuse bodyaches. She reports she has a flare up of her fibromyalgia and earlier today went to go see her PMD who advised her to come to ER for evaluation. She is on chronic pain management and takes percocet 7.5mg; patient states she took Tylenol in addition to her percocet today with no relief of her pain. She denies any fever, chills, chest pain, shortness of breath, abdominal pain. No other medical complaints. Time Seen by Provider: 12/08/17 19:36 Chief Complaint (Nursing): Pain, Chronic History Per: Patient History/Exam Limitations: no limitations Onset/Duration Of Symptoms: Persistent Severity: Mild Pain Scale Rating Of: 2 Reports Recently: Seen In ED, Treated By A Physician Recent travel outside of the [place]: No Additional History Per: Patient Past Medical History Reviewed: Historical Data, Nursing Documentation, Vital Signs Vital Signs: Last Vital Signs Temp 98.0 F 12/08/17 22:17 Pulse 111 H 12/08/17 22:17 Resp 20 12/08/17 22:17 BP 137/90 12/08/17 22:17 Pulse Ox 100 12/08/17 22:17 - Medical History PMH: Anxiety, Arthritis, Asthma, Back Problems, Depression, Fibromyalgia, Gall Bladder Disease, HTN, Kidney Stones, Migraine, Chronic Kidney Disease, Chronic Pain Surgical History: Cholecystectomy (Laparoscopic), Endoscopy - [facility] Procedures EYELID REPAIR NEC (04/29/00) INJECT/INFUSE NEC (07/20/13) MYRINGOTOMY W INTUBATION (07/18/03) OTOSCOPY (12/14/03) REMOVE EYELID LESION NOS (04/29/00) Family History: States: Unknown Family Hx - Social History Hx Tobacco Use: No Hx Alcohol Use: No Hx Substance Use: No - Immunization History Hx Tetanus Toxoid Vaccination: No Hx Influenza Vaccination: No Hx Pneumococcal Vaccination: No Review Of Systems Constitutional: Positive for: Malaise (diffuse bodyaches). Negative for: Fever , Chills Cardiovascular: Negative for: Chest Pain Respiratory: Negative for: Shortness of Breath Gastrointestinal: Negative for: Abdominal Pain Physical Exam - Physical Exam Appears: Non-toxic, Other (diffuse achiness all over body) Skin: Warm, Dry Head: Atraumatic, Normacephalic Eye(s): bilateral: Normal Inspection Oral Mucosa: Moist Neck: Trachea Midline, Supple Chest: Symmetrical, Tenderness (diffuse to palpation) Cardiovascular: Rhythm Regular Respiratory: No Rales, No Rhonchi, No Wheezing Gastrointestinal/Abdominal: Bowel Sounds (good), Soft, No Tenderness Back: No CVA Tenderness, No Vertebral Tenderness Extremity: Normal ROM, No Deformity, No Swelling Extremity: Bilateral: Atraumatic Pulses: Left Dorsalis Pedis: Normal, Right Dorsalis Pedis: Normal Neurological/Psych: Oriented x3, Normal Speech, Normal Cognition Gait: Steady ED Course And Treatment ECG: Interpreted By Me, Viewed By Me ECG Rhythm: Sinus Rhythm (92), L BBB O2 Sat by Pulse Oximetry: 94 Pulse Ox Interpretation: Normal - Radiology CXR: Interpreted by Me, Viewed By Me Progress Note: Pt refuses any blood work. States she "knows it's my fibromyalgia " Understands the risks as I've explained at length including permanent disability and , and states that she will follow up with dr greene Reevaluation Time: 22:54 Reassessment Condition: Improved Disposition Counseled Patient/Family Regarding: Studies Performed, Diagnosis, Need For Followup - Disposition Referrals: Jose Greene MD [Staff Provider] - Disposition: HOME/ ROUTINE Disposition Time: 19:36 Condition: FAIR Additional Instructions: Please return if symptoms recur Instructions: Fibromyalgia (DC), Muscle and Bone Pain (DC) Forms: [employer] [facility] (Sami) - Clinical Impression Clinical Impression: fibromyalgia - Scribe Statement The provider has reviewed the documentation as recorded by the Scribe (Chandrika Brenner) Provider Attestation: All medical record entries made by the Scribe were at my direction and personally dictated by me. I have reviewed the chart and agree that the record accurately reflects my personal performance of the history, physical exam, medical decision making, and the department course for this patient. I have also personally directed, reviewed, and agree with the discharge instructions and disposition.
[2017-12-08 23:15] VITALS: BP 100/72; PULSE 100; TEMP 97.7; O2SAT 100
--- NOTE | 2017-12-10 07:50 | CARD ---
APPROVED REPORT EKG Measurement Heart [id number] LA 156P40 [id number] <Conclusion> Normal sinus rhythm Left bundle branch block Abnormal ECG
== END 2017-12-08 23:15 | disposition home or self-care (01) ==
LOC: C.ER 18:28
DX: M79.7 Fibromyalgia (principal)

== ENCOUNTER 2018-06-04 06:12 | Emergency (ER) | payer MEDICARE ==
[2018-06-04 06:14] VITALS: BMI 30.6
[2018-06-04 06:25] VITALS: TEMP 98.4; O2SAT 98
[2018-06-04 06:50] LABS: BASO # 0.1 K/uL (0.0-0.2); BASO % 0.9 % (0.0-2.0); EOS # 0.1 K/uL (0.0-0.7); EOS % 1.6 % (0.0-4.0); LYMPH % 26.2 % (20.0-40.0); MEAN CELL VOLUME 84.7 fL (81.0-99.0); MEAN CORPUSCULAR HGB CONC 34.3 g/dL (33.0-37.0); MEAN PLATELET VOLUME 7.9 fL (7.2-11.7); MONO # 0.6 K/uL (0.0-0.8); MONO % 7.1 % (0.0-10.0); NEUT % 64.2 % (50.0-75.0); NRBC % 0.1 % (0.0-2.0); RBC 4.48 Mil/uL (3.80-5.20); RED CELL DISTRIBUTION WIDTH 14.3 % (11.5-14.5); WHITE BLOOD COUNT 7.8 K/uL (4.8-10.8)
[2018-06-04 07:00] LABS: BLOOD UREA NITROGEN 10 mg/dL (7-17); CALCIUM 9.6 mg/dl (8.6-10.4); GFR NON-AFRICAN AMERICAN > 60
[2018-06-04 07:01] LABS: ALB/GLOB RATIO 1.3 (1.0-2.1); ALBUMIN 4.6 g/dL (3.5-5.0); ALT/SGPT 25 U/L (9-52); AST/SGOT 33 U/L (14-36)
[2018-06-04] MEDS ORDERED: Sodium Chloride 0.9% 1,000 ML IV ONE (07:17)
[2018-06-04] MEDS ORDERED: Sodium Chloride 0.9% 1,000 ML ONE (07:34)
[2018-06-04 07:52] LABS: LIPASE 343 U/L (23-300)
--- NOTE | 2018-06-04 08:00 | C.PDOC ---
History Of Present Illness 57 yo female w/PHx of aortic aneurysm , anxiety, GERD come in for evaluation of nausea, intermittent non-bilious, non-bloody vomiting gradually developed of past few days associated with epigastric discomfort. Pt reports, was seen by PMD few days ago " waiting for stress test to be scheduled". Otherwise, pt denies fever, chills, headache, dizziness, CP, SOB, dyspnea, palpitation, diaphoresis, hematemesis, melena, diarrhea, back pain, UTI sx. At the time of evaluation, pt appear comfortable, not in any apparent distress. No emesis noted in ED. Time Seen by Provider: 06/04/18 07:09 Chief Complaint (Nursing): Abdominal Pain History Per: Patient Past Medical History Reviewed: Historical Data, Nursing Documentation Vital Signs: Last Vital Signs Temp 98.4 F 06/04/18 06:16 Pulse 94 H 06/04/18 06:16 Resp 14 06/04/18 06:16 BP 170/118 H 06/04/18 06:16 Pulse Ox 98 06/04/18 06:16 - Medical History PMH: Anxiety, Arthritis, Asthma, Back Problems, Depression, Fibromyalgia, Gall Bladder Disease, HTN, Kidney Stones, Migraine, Chronic Kidney Disease, Chronic Pain Surgical History: Cholecystectomy (Laparoscopic), Endoscopy - [facility] Procedures EYELID REPAIR NEC (04/29/00) INJECT/INFUSE NEC (07/20/13) MYRINGOTOMY W INTUBATION (07/18/03) OTOSCOPY (12/14/03) REMOVE EYELID LESION NOS (04/29/00) Family History: States: Unknown Family Hx - Social History Hx Tobacco Use: No Hx Alcohol Use: No Hx Substance Use: No - Immunization History Hx Tetanus Toxoid Vaccination: No Hx Influenza Vaccination: No Hx Pneumococcal Vaccination: No Review Of Systems Except As Marked, All Systems Reviewed And Found Negative. Constitutional: Negative for: Fever, Chills Eyes: Negative for: Vision Change ENT: Negative for: Ear Discharge, Nose Discharge Cardiovascular: Negative for: Chest Pain, Palpitations, Edema, Light Headedness Respiratory: Negative for: Cough, Shortness of Breath Gastrointestinal: Positive for: Nausea, Vomiting, Abdominal Pain. Negative for: Diarrhea, Melena, Hematochezia, Hematemesis Genitourinary: Negative for: Dysuria Musculoskeletal: Negative for: Neck Pain, Back Pain Skin: Negative for: Rash Neurological: Negative for: Weakness, Numbness, Altered Mental Status, Headache, Dizziness Physical Exam - Physical Exam Appears: Well, Non-toxic, No Acute Distress Skin: Normal Color, Warm, Dry, No Rash Head: Normacephalic Eye(s): bilateral: PERRL Nose: No Flaring, No Discharge Oral Mucosa: Moist, No Drooling Tongue: Normal Appearing Lips: Normal Appearing Throat: No Erythema Neck: Trachea Midline, Supple Cardiovascular: Rhythm Regular, No Murmur, No JVD Respiratory: No Decreased Breath Sounds, No Accessory Muscle Use, No Stridor, No Wheezing Gastrointestinal/Abdominal: Soft, Tenderness (mild epigastric), No Distention, No Guarding, No Rebound Back: No CVA Tenderness Extremity: Normal ROM, No Pedal Edema, No Deformity, No Swelling Neurological/Psych: Oriented x3, Normal Speech ED Course And Treatment - Laboratory Results Result Diagrams: 06/04/18 06:45 06/04/18 06:45 ECG: Interpreted By Me, Viewed By Me ECG Interpretation: No Changes From Prior (12/08/17) Interpretation Of ECG: SR@71/min, LBBB O2 Sat by Pulse Oximetry: 98 Pulse Ox Interpretation: Normal - CT Scan/US CT C/P w/IV contrast Other Rad Studies (CT/US): Radiology Report Reviewed CT/US Interpretation: Patient Name / ID : PRIMITIVO DOMINGUEZ / [id number]. Exam Date : 06/04/2018 10:04:55 ( Approved ). Study Comment : Sex / Age : F / 57Y. Creator : Gomez Castaneda MD. Dictator : Gomez Castaneda MD. Auto Tune Up Mechanic : Supervisor Net Making : Gomez Castaneda MD. Approver2 : Report Date : 06/04/2018 11:23:44. My Comment : . PROCEDURE: CT Angiography Chest, Abdomen with intravenous contrast. HISTORY: Chest pain, abdominal pain, history of aorta aneurysm. COMPARISON: Comparison made with CT scan of the abdomen 07/05/2017. TECHNIQUE: Contiguous helical/transaxial images of the chest and abdomen were obtained in the phase of aortic enhancement. Coronal and sagittal reformats were generated. IV dose administered: 100 cc Visipaque 320. Radiation dose: Total exam DLP = 676.99 mGy-cm. This CT exam was performed using one or more of the following dose reduction techniques: Automated exposure control, adjustment of the mA and/or kV according to patient size, and/or use of iterative reconstruction technique the the. FINDINGS: CT ANGIOGRAPHY OF THE CHEST WITH & WITHOUT CONTRAST: AORTA (CHEST AND ABDOMEN): There is mild atherosclerotic plaque seen involving a short segment of the transverse portion of the aortic arch.. There is also mild dilatation of the ascending thoracic aorta measuring approximately 4 cm in greatest transverse dimension. Descending thoracic aorta measures approximately 2.3 cm. Minor soft plaque changes seen along the proximal portion of the descending thoracic aorta. The thoracic aorta is otherwise unremarkable without the the dissection or rupture. The abdominal aorta demonstrates partially calcified atherosclerotic p laque extending into both iliac arteries however no evidence of aneurysm dissection or rupture. Minor partially calcified plaque also seen at the origins of the celiac axis and SMA, left renal artery and ROCAEL. The celiac axis, superior mesenteric artery, inferior mesenteric artery and the right renal arteries are widely patent.. There appears to be some mild localized narrowing of the origin left renal artery. The pelvic arteries are unremarkable. LUNGS: Mild localized atelectasis/scarring changes seen in the left lingular middle lobe regions. MEDIASTINUM: Size is borderline/mildly enlarged. No significant pericardial effusion. There is mild dilatation of the ascending thoracic aorta measuring nearly 4 cm. LYMPH NODES: Unremarkable. PLEURA: Unremarkable. No pneumothorax. No pleural fluid. BONES: Unremarkable. OTHER FINDINGS: None. CT ANGIOGRAPHY OF THE ABDOMEN AND PELVIS WITH CONTRAST: LIVER: Liver exhibits normal size. Mild fatty hepatic infiltration. No obvious hepatic mass collection or calcification seen on this early arterial injection. The portal and splenic veins are therefore not well delineated. GALLBLADDER AND BILE DUCTS: Cholecystectomy. PANCREAS: Pancreas appears slightly atrophic and fatty replaced. SPLEEN: Unremarkable. ADRENALS: No adrenal lesions. KIDNEYS AND URETERS: Kidneys demonstrate relatively symmetric nephrograms. No evidence of nephrolithiasis or hydronephrosis. No solid mass.. There is a peanut shaped lobulated cystic structure arising from the inferior pole right kidney that may represent a lobulated single cyst or 2 adjacent smaller cysts. VASCULATURE: Unremarkable. No aortic aneurysm. STOMACH AND BOWEL: Note that the the bowels incompletely visualized. Stomach is collapsed. Visualized loops of small bowel exhibit relatively normal contour and caliber. No evidence of acute mechanical small bowel obstruction.. The the visualized portions of the large bowel appear collapsed which presumably accounts for slight wall thickening. APPENDIX: Not visualized. PERITONEUM: Limited study demonstrating no gross free fluid or free air seen in upper abdomen.. Small fat containing umbilical hernia. LYMPH NODES: Unremarkable. No enlarged lymph nodes. BLADDER: Not visualized. REPRODUCTIVE: Not visualized. BONES: Mild multilevel degenerative spondylosis of the thoracic and lumbar spine. No acute compression fractures no retropulsed fragments.. OTHER FINDINGS: None. IMPRESSION: There is mild dilatation of the ascending thoracic aorta measuring nearly 4 cm in greatest dimension.. There is also mild localized calcified atherosclerotic plaque along short segment of the transverse portion of the aortic arch with soft plaque along the proximal descending thoracic aorta. No evidence of rupture or dissection. Partially calcified atherosclerotic plaque seen along the abdominal aorta ext ending into the iliac arteries. There are also partially calcified atherosclerotic plaque changes seen at the origins of the celiac axis, SMA left renal artery with mild narrowing at the origin of the left renal artery. No evidence of abdominal aortic aneurysm. Mild atelectasis and or scarring changes seen in the lingular and middle lobe regions. Small exophytic cystic changes inferior pole right kidney. Cholecystectomy. See above discussion for additional details and findings. Progress Note: Pt remained stable during the Ed evaluation. Afebrile, hemodynamicaly stable. NOn-toxic. Abd: benign, (-) guarding, (-) rebound, (-) localized tenderness. Neuorlogicaly intact. Blood work review and appears baseline. EKG- c/w LBBB, comparet to previous EKS, stable, no new changes. CT chest results review and also appears stable without acute changes ( compare to previosu results, pt has copy). Given pt PMHX, abnormal EKG, sx of CP admission recommend but pt refused admission at present time. Risk/complication discussed with patient, including suddent , pt have full capasity to make decision and refused admission at present time, preferred " will see my doctor on Wednesday". Case discussed with , referred patient to call on Wednesday for outpt stress test. Pt advised to F/u with PMD and card in 2 days for re-eavl without fail or/and return to Ed at any time if any worsening or new changes. Against Medical Advice - AMA Patient Left Against Medical Advice: The patient declines admission to the hospital and wishes to leave the Emergency Department. This action is against my medical advice. This decision was made with informed refusal. The patient was told that admission to the hospital is necessary. Explanation of the reasons why were discussed. The risks of leaving were explained to the patient and include, but are not limited to, worsening of known or currently unknown conditions, permanent disability and from undiagnosed or untreated conditions. The patient has the capacity to make this informed decision and understands my explanation of the current medical problem and risks of leaving. The patient voluntarily accepts these risks and signed an AMA form documenting our conversation. The patient was given the opportunity to ask questions and reconsider. The patient was encouraged to return to the Emergency Department at any time for fur ther care. Disposition - Disposition Referrals: Hero Medrano MD [Staff Provider] - Abel Ayoub MD [Staff Provider] - Disposition: AGAINST MEDICAL ADVICE Disposition Time: 11:02 Condition: STABLE Additional Instructions: FOLLOW UP WITH PMD AND GLUE MAKER DR. MEDRANO SOON POSSIBLE FOR FURTHER EVALUATION AND TREATMENT NEED RETURN TO ED AT ANY TIME TO COMPLETE EVALUATION. Prescriptions: Nitrofurantoin Macrocrystals [Macrobid] 1 cap PO BID #14 cap Instructions: Chest Pain Forms: [facility] (Bengali) - Clinical Impression Clinical Impression: Chest pain, UTI symptoms
[2018-06-04 08:05] LABS: B-TYPE NATRIURETIC PEPTIDE 108 pg/mL (0-900)
[2018-06-04 08:48] LABS: SQUAMOUS EPITHIAL 4 /hpf (0-5); URINE BACTERIA RARE (<OCC); URINE BILIRUBIN NEGATIVE (NEGATIVE); URINE BLOOD NEGATIVE (NEGATIVE); URINE CLARITY Hazy (Clear); URINE COLOR Straw (YELLOW); URINE GLUCOSE (UA) NORMAL (Normal); URINE LEUKOCYTE ESTERASE 3+ Leu/uL (Negative); URINE PROTEIN NEGATIVE (NEGATIVE); URINE UROBILINOGEN NORMAL mg/dL (0.2-1.0)
[2018-06-04] MEDS ORDERED: Iodixanol 320 MG/ML 100 ML BOTTLE IV ONE (09:55)
[2018-06-04 10:46] LABS: PROTHROMBIN TIME 10.8 SECONDS (9.7-12.2)
--- NOTE | 2018-06-04 11:25 | CT ---
PROCEDURE: CT Angiography Chest, Abdomen with intravenous contrast HISTORY: Chest pain, abdominal pain, history of aorta aneurysm COMPARISON: Comparison made with CT scan of the abdomen 07/05/2017 TECHNIQUE: Contiguous helical/transaxial images of the chest and abdomen were obtained in the phase of aortic enhancement. Coronal and sagittal reformats were generated. IV dose administered: 100 cc Visipaque 320 Radiation dose: Total exam DLP = 676.99 mGy-cm. This CT exam was performed using one or more of the following dose reduction techniques: Automated exposure control, adjustment of the mA and/or kV according to patient size, and/or use of iterative reconstruction technique the the. FINDINGS: CT ANGIOGRAPHY OF THE CHEST WITH & WITHOUT CONTRAST: AORTA (CHEST AND ABDOMEN): There is mild atherosclerotic plaque seen involving a short segment of the transverse portion of the aortic arch.. There is also mild dilatation of the ascending thoracic aorta measuring approximately 4 cm in greatest transverse dimension. Descending thoracic aorta measures approximately 2.3 cm. Minor soft plaque changes seen along the proximal portion of the descending thoracic aorta. The thoracic aorta is otherwise unremarkable without the the dissection or rupture. The abdominal aorta demonstrates partially calcified atherosclerotic plaque extending into both iliac arteries however no evidence of aneurysm dissection or rupture. Minor partially calcified plaque also seen at the origins of the celiac axis and SMA, left renal artery and ROCAEL. The celiac axis, superior mesenteric artery, inferior mesenteric artery and the right renal arteries are widely patent.. There appears to be some mild localized narrowing of the origin left renal artery. The pelvic arteries are unremarkable. LUNGS: Mild localized atelectasis/scarring changes seen in the left lingular middle lobe regions. MEDIASTINUM: Size is borderline/mildly enlarged. No significant pericardial effusion. There is mild dilatation of the ascending thoracic aorta measuring nearly 4 cm LYMPH NODES: Unremarkable. PLEURA: Unremarkable. No pneumothorax. No pleural fluid. BONES: Unremarkable. OTHER FINDINGS: None. CT ANGIOGRAPHY OF THE ABDOMEN AND PELVIS WITH CONTRAST: LIVER: Liver exhibits normal size. Mild fatty hepatic infiltration. No obvious hepatic mass collection or calcification seen on this early arterial injection. The portal and splenic veins are therefore not well delineated. GALLBLADDER AND BILE DUCTS: Cholecystectomy. PANCREAS: Pancreas appears slightly atrophic and fatty replaced. SPLEEN: Unremarkable. ADRENALS: No adrenal lesions. KIDNEYS AND URETERS: Kidneys demonstrate relatively symmetric nephrograms. No evidence of nephrolithiasis or hydronephrosis. No solid mass.. There is a peanut shaped lobulated cystic structure arising from the inferior pole right kidney that may represent a lobulated single cyst or 2 adjacent smaller cysts. VASCULATURE: Unremarkable. No aortic aneurysm. STOMACH AND BOWEL: Note that the the bowels incompletely visualized. Stomach is collapsed. Visualized loops of small bowel exhibit relatively normal contour and caliber. No evidence of acute mechanical small bowel obstruction.. The the visualized portions of the large bowel appear collapsed which presumably accounts for slight wall thickening. APPENDIX: Not visualized PERITONEUM: Limited study demonstrating no gross free fluid or free air seen in upper abdomen.. Small fat containing umbilical hernia. LYMPH NODES: Unremarkable. No enlarged lymph nodes. BLADDER: Not visualized. REPRODUCTIVE: Not visualized. BONES: Mild multilevel degenerative spondylosis of the thoracic and lumbar spine. No acute compression fractures no retropulsed fragments.. OTHER FINDINGS: None. IMPRESSION: There is mild dilatation of the ascending thoracic aorta measuring nearly 4 cm in greatest dimension.. There is also mild localized calcified atherosclerotic plaque along short segment of the transverse portion of the aortic arch with soft plaque along the proximal descending thoracic aorta. No evidence of rupture or dissection. Partially calcified atherosclerotic plaque seen along the abdominal aorta extending into the iliac arteries. There are also partially calcified atherosclerotic plaque changes seen at the origins of the celiac axis, SMA left renal artery with mild narrowing at the origin of the left renal artery. No evidence of abdominal aortic aneurysm. Mild atelectasis and or scarring changes seen in the lingular and middle lobe regions. Small exophytic cystic changes inferior pole right kidney. Cholecystectomy. See above discussion for additional details and findings.
[2018-06-04 12:11] VITALS: BP 148/95; PULSE 76; RESP 18
--- NOTE | 2018-06-06 22:46 | CARD ---
APPROVED REPORT Date of service: 06/04/2018 EKG Measurement Heart [id number] ID [id number] <Conclusion> Normal sinus rhythm Left bundle branch block Abnormal ECG
== END 2018-06-04 12:11 | disposition left against medical advice (07) ==
LOC: C.ER 06:12
DX: R07.9 Chest pain, unspecified (principal); R11.2 Nausea with vomiting, unspecified; R10.9 Unspecified abdominal pain; M79.7 Fibromyalgia; I12.9 Hypertensive chronic kidney disease with stage 1 through stage 4 chronic kidney disease, or unspecified chronic kidney disease; N18.9 Chronic kidney disease, unspecified
CPT/HCPCS: 71260; 74160; 80053; 81001; 83690; 83880; 84484; 85025; 85610; 85730; 93005; 96361; 96374; 96375; 99285; C9113; J2405; J7030; Q9967

== ENCOUNTER 2018-07-18 05:12 | Emergency (ER) | payer MEDICARE, OTHER ==
[2018-07-18 05:12] VITALS: BMI 30.6
--- NOTE | 2018-07-18 06:00 | C.PDOC ---
History Of Present Illness 57 year old female with PMHx of chronic pain presents to the ED complaining of worsening of chronic pain for 2 days. Reports she used her last Oxycodone last night. Complains of vomiting, diarrhea,urinary incontinence, and lower back pain today. Denies any fever, chills, cough, shortness of breath, chest pain, abdominal pain, or any other symptoms. Time Seen by Provider: 07/18/18 05:40 Chief Complaint (Nursing): Back Pain History Per: Patient History/Exam Limitations: no limitations Onset/Duration Of Symptoms: Days (2) Current Symptoms Are (Timing): Still Present Previous Symptoms: Chronic Pain Associated Symptoms: Incontinence Past Medical History Reviewed: Historical Data, Nursing Documentation, Vital Signs Vital Signs: Last Vital Signs Temp 97.8 F 07/18/18 05:35 Pulse 98 H 07/18/18 05:35 Resp 18 07/18/18 05:35 BP 123/85 07/18/18 05:35 Pulse Ox 98 07/18/18 05:35 - Medical History PMH: Anxiety, Arthritis, Asthma, Back Problems, Depression, Fibromyalgia, Gall Bladder Disease, HTN, Kidney Stones, Migraine, Chronic Kidney Disease, Chronic Pain Surgical History: Cholecystectomy (Laparoscopic), Endoscopy - [facility] Procedures EYELID REPAIR NEC (04/29/00) INJECT/INFUSE NEC (07/20/13) MYRINGOTOMY W INTUBATION (07/18/03) OTOSCOPY (12/14/03) REMOVE EYELID LESION NOS (04/29/00) Family History: States: No Known Family Hx - Social History Hx Tobacco Use: No Hx Alcohol Use: No Hx Substance Use: No - Immunization History Hx Tetanus Toxoid Vaccination: No Hx Influenza Vaccination: No Hx Pneumococcal Vaccination: No Review Of Systems Constitutional: Negative for: Fever, Chills Cardiovascular: Negative for: Chest Pain Respiratory: Negative for: Cough, Shortness of Breath Gastrointestinal: Positive for: Vomiting, Diarrhea. Negative for: Abdominal Pain Genitourinary: Positive for: Incontinence. Negative for: Dysuria, Hematuria Musculoskeletal: Positive for: Back Pain Physical Exam - Physical Exam Appears: Non-toxic, No Acute Distress Skin: Warm, Dry Head: Atraumatic, Normacephalic Eye(s): bilateral: Normal Inspection Neck: Normal ROM, Supple Chest: Symmetrical Cardiovascular: Rhythm Regular Respiratory: Normal Breath Sounds, No Rales, No Rhonchi, No Wheezing Gastrointestinal/Abdominal: Soft, No Tenderness Extremity: Normal ROM Neurological/Psych: Oriented x3, Normal Speech Gait: Steady ED Course And Treatment O2 Sat by Pulse Oximetry: 98 (RA) Pulse Ox Interpretation: Normal Medical Decision Making Medical Decision Making: Plan - Bloodwork - Peocid 20mg IVP - Zofran 4mg IVP - IV fluids - [place] - Patient was prescribed 42 tablets of Percocets on 07/05/18. States she ran out last night. Possible withdrawal from opiates. will s.o to [facility] for disposition. Disposition - Disposition Disposition Time: 07:02 Condition: GOOD Forms: [facility] (Spanish) - Clinical Impression Clinical Impression: Gastroenteritis, Chronic lower back pain - PA / ROLL ICER MACHINE / Resident Statement MD/DO has reviewed & agrees with the documentation as recorded. - Scribe Statement The provider has reviewed the documentation as recorded by the Scribe Amie Li All medical record entries made by the Scribe were at my direction and personally dictated by me. I have reviewed the chart and agree that the record accurately reflects my personal performance of the history, physical exam, medical decision making, and the department course for this patient. I have also personally directed, reviewed, and agree with the discharge instructions and disposition. Physician Patient Turnover Patient Signed Over To: [facility] Handoff Comments: f/u labs andf dispo
[2018-07-18] MEDS ORDERED: Sodium Chloride 0.9% 1,000 ML IV ONE (06:11)
[2018-07-18] MEDS ORDERED: Sodium Chloride 0.9% 1,000 ML ONE (07:01)
[2018-07-18] MEDS ORDERED: Lidocaine 5% Patch TD STA (07:02)
[2018-07-18 07:14] LABS: BASO % 0.5 % (0.0-2.0); EOS # 0.1 K/uL (0.0-0.7); EOS % 1.4 % (0.0-4.0); HEMOGLOBIN 13.9 g/dL (11.0-16.0); LYMPH # 1.3 K/uL (1.0-4.3); LYMPH % 14.9 % (20.0-40.0); MEAN CELL VOLUME 85.9 fL (81.0-99.0); MEAN CORPUSCULAR HEMOGLOBIN 29.2 pg (27.0-31.0); MEAN PLATELET VOLUME 7.6 fL (7.2-11.7); MONO # 0.5 K/uL (0.0-0.8); MONO % 6.1 % (0.0-10.0); NEUT # 6.9 K/uL (1.8-7.0); NEUT % 77.1 % (50.0-75.0); RBC 4.74 Mil/uL (3.80-5.20); RED CELL DISTRIBUTION WIDTH 14.2 % (11.5-14.5); WHITE BLOOD COUNT 8.9 K/uL (4.8-10.8)
[2018-07-18 07:18] LABS: HCG,QUALITATIVE URINE NEGATIVE (NEGATIVE)
[2018-07-18 07:21] LABS: SQUAMOUS EPITHIAL 3 /hpf (0-5); URINE BACTERIA RARE (<OCC); URINE BILIRUBIN NEGATIVE (NEGATIVE); URINE BLOOD 1+ (NEGATIVE); URINE CLARITY Clear (Clear); URINE COLOR Yellow (YELLOW); URINE GLUCOSE (UA) NORMAL (Normal); URINE LEUKOCYTE ESTERASE NEG Leu/uL (Negative); URINE PROTEIN NEGATIVE (NEGATIVE); URINE UROBILINOGEN NORMAL mg/dL (0.2-1.0)
[2018-07-18 07:24] LABS: ALB/GLOB RATIO 1.3 (1.0-2.1); ALBUMIN 4.9 g/dL (3.5-5.0); ALT/SGPT 29 U/L (9-52); AST/SGOT 30 U/L (14-36); BLOOD UREA NITROGEN 10 mg/dL (7-17); CALCIUM 9.8 mg/dl (8.6-10.4); GFR NON-AFRICAN AMERICAN > 60; LIPASE 109 U/L (23-300)
[2018-07-18 07:35] LABS: BARBITURATES, UR NEGATIVE (NEGATIVE); OPIATES, UR NEGATIVE (NEGATIVE); PHENCYCLIDINE, UR NEGATIVE (NEGATIVE)
[2018-07-18] MEDS ORDERED: Lidocaine 5% Patch TD ONE (07:41)
[2018-07-18 07:55] VITALS: BP 121/82; PULSE 86; RESP 20; TEMP 98.2; O2SAT 96
[2018-07-18 08:02] LABS: BENZODIAZEPINES, UR POSITIVE (NEGATIVE)
== END 2018-07-18 09:18 | disposition home or self-care (01) ==
LOC: C.ER 05:12
DX: G89.29 Other chronic pain (principal); M54.5 Low back pain; K52.9 Noninfective gastroenteritis and colitis, unspecified; M79.7 Fibromyalgia; I12.9 Hypertensive chronic kidney disease with stage 1 through stage 4 chronic kidney disease, or unspecified chronic kidney disease; N18.9 Chronic kidney disease, unspecified
CPT/HCPCS: 80053; 81001; 83690; 84703; 85025; 87086; 96374; 96375; 99285; G0480; J2405; J7030

== ENCOUNTER 2018-08-04 17:35 | Emergency (ER) | payer MEDICARE, OTHER ==
[2018-08-04 17:38] VITALS: BMI 33.3
[2018-08-04] MEDS ORDERED: DiphenhydrAMINE 50 mg/ml Inj IVP STA ×2 (18:45→20:49)
[2018-08-04] MEDS ORDERED: DiphenhydrAMINE 50 mg/ml Inj ONE ×2 (18:54→20:49)
[2018-08-04 21:02] VITALS: O2SAT 97
--- NOTE | 2018-08-04 21:07 | C.PDOC ---
History Of Present Illness 57 year old female, whose PMHx includes sciatica, fibromyalgia, depression and anxiety, presents to the ED for evaluation of difficulty breathing which began last night. Patient states she woke up with shortness of breath this morning and felt her lips turning blue. Patient states she had tea and took her usual Percocet this morning, after which she felt swelling to her tongue and throat. She notes she has been taking Percocet regularly. She states the swelling and shortness of breath has improved since the morning. She has not taken any medicine for her symptoms. denies fever, chills, chest pain, nausea, vomiting, diarrhea, constipation or rash. Chief Complaint (Nursing): Shortness Of Breath History Per: Patient History/Exam Limitations: no limitations Onset/Duration Of Symptoms: Hrs Current Symptoms Are (Timing): Better Quality: denies: "Pain" Current Respiratory Medications: See Home Med List Associated Symptoms: denies: Fever, Chills, Chest Pain Additional History Per: Patient Past Medical History Reviewed: Historical Data, Nursing Documentation, Vital Signs Vital Signs: Last Vital Signs Temp 97.6 F 08/04/18 17:44 Pulse 89 08/04/18 21:01 Resp 16 08/04/18 21:01 BP 133/89 08/04/18 17:44 Pulse Ox 97 08/04/18 21:01 - Medical History PMH: Anxiety, Arthritis, Asthma, Back Problems, Depression, Fibromyalgia, Gall Bladder Disease, HTN, Kidney Stones, Migraine, Chronic Kidney Disease, Chronic Pain Surgical History: Cholecystectomy (Laparoscopic), Endoscopy - [facility] Procedures EYELID REPAIR NEC (04/29/00) INJECT/INFUSE NEC (07/20/13) MYRINGOTOMY W INTUBATION (07/18/03) OTOSCOPY (12/14/03) REMOVE EYELID LESION NOS (04/29/00) Family History: States: Unknown Family Hx - Social History Hx Tobacco Use: No Hx Alcohol Use: No Hx Substance Use: No - Immunization History Hx Tetanus Toxoid Vaccination: No Hx Influenza Vaccination: No Hx Pneumococcal Vaccination: No Review Of Systems Constitutional: Negative for: Fever, Chills ENT: Positive for: Throat Swelling, Other (tongue swelling ) Cardiovascular: Negative for: Chest Pain Respiratory: Positive for: Shortness of Breath, Other (difficulty breathing ) Gastrointestinal: Negative for: Nausea, Vomiting, Diarrhea, Constipation Physical Exam - Physical Exam Appears: Non-toxic, No Acute Distress Skin: Normal Color, Warm, Dry, No Rash Head: Atraumatic, Normacephalic Eye(s): bilateral: Normal Inspection Nose: Normal Oral Mucosa: Moist Tongue: No Swelling, Other (tongue at midline ) Lips: Normal Appearing, No Swelling Teeth: Edentulous (lower teeth ) Throat: Normal, No Erythema, No Exudate, Other (uvula is visible, does not appear to be obstructing airway, no signs of deviation or swelling ) Neck: Supple Chest: Symmetrical, No Deformity, No Tenderness Cardiovascular: Rhythm Regular, No Murmur, Other (tachycardia ) Respiratory: Normal Breath Sounds, No Rales, No Rhonchi, No Wheezing Gastrointestinal/Abdominal: Soft, No Tenderness, No Guarding, No Rebound Extremity: Normal ROM, Capillary Refill (less than 2 seconds ), No Swelling Neurological/Psych: Oriented x3, Normal Speech, Normal Cognition ED Course And Treatment O2 Sat by Pulse Oximetry: 97 (on RA) Pulse Ox Interpretation: Normal Medical Decision Making Medical Decision Making: Progress: Benadryl IVP, Pepcid IVP, and Solu-Medrol IVP given. 20:45 - on reassessment patient reports feeling tongue still swollen despite of mediations. Patient states her tongue is going through her teeth and she is bitting it. Patient states having similar symptoms in the past and was evaluated by an front office associate. 2140: On reassessment, patient states she is feeling better after receiving second dose of Benadryl. 22:32 - Patient reports she is feeling better. Patient reports eating all protein noodles and drinking tea. Patient was advised to stop eating the noodles and avoid new food. Disposition Counseled Patient/Family Regarding: Diagnosis, Need For Followup - Disposition Referrals: Abel Ayoub MD [Staff Provider] - Disposition: HOME/ ROUTINE Disposition Time: 22:35 Condition: GOOD Prescriptions: predniSONE [Prednisone] 40 mg PO DAILY #10 tab Ranitidine HCl [Zantac 300] 300 mg PO HS #10 tab Instructions: Shortness of Breath (Dyspnea) (DC), Drug Allergy Forms: [facility] (Bengali) - POA Present On Arrival: None - Clinical Impression Clinical Impression: Allergic reaction, Shortness of breath - Scribe Statement The provider has reviewed the documentation as recorded by the Scribe (Jasmine Funes) Provider Attestation: All medical record entries made by the Scribe were at my direction and personally dictated by me. I have reviewed the chart and agree that the record accurately reflects my personal performance of the history, physical exam, medical decision making, and the department course for this patient. I have also personally directed, reviewed, and agree with the discharge instructions and disposition.
[2018-08-04 22:45] VITALS: BP 141/84; PULSE 88; RESP 18; TEMP 98
== END 2018-08-04 22:56 | disposition home or self-care (01) ==
LOC: C.ER 17:35
DX: T78.40XA Allergy, unspecified, initial encounter (principal); R06.02 Shortness of breath
CPT/HCPCS: 96374; 96375; 96376; 99285; J1200; J2930

== ENCOUNTER 2018-09-04 16:02 | Emergency (ER) | payer MEDICARE, OTHER ==
[2018-09-04 16:03] VITALS: BMI 33.3
[2018-09-04 16:17] VITALS: BP 160/106; PULSE 116; RESP 18; TEMP 97.5; O2SAT 96
[2018-09-04] MEDS ORDERED: Dexamethasone 4 mg/1 ml IM STA (16:41)
--- NOTE | 2018-09-04 16:53 | C.PDOC ---
History Of Present Illness 57 year old female with PMHx of fibromyalgia presents to the ED complaining of burning sensation under bilateral breast folds and nipples status post applying Muscle Rub 3 days ago. Denies any other complaints. Time Seen by Provider: 09/04/18 16:29 Chief Complaint (Nursing): Abnormal Skin Integrity History Per: Patient History/Exam Limitations: no limitations Onset/Duration Of Symptoms: Days (3) Current Symptoms Are (Timing): Still Present Location Of Injury: Anterior: Chest (burning sensation ) Past Medical History Reviewed: Historical Data, Nursing Documentation, Vital Signs Vital Signs: Last Vital Signs Temp 97.5 F L 09/04/18 16:07 Pulse 116 H 09/04/18 16:07 Resp 18 09/04/18 16:07 BP 160/106 H 09/04/18 16:07 Pulse Ox 96 09/04/18 16:07 - Medical History PMH: Anxiety, Arthritis, Asthma, Back Problems, Depression, Fibromyalgia, Gall Bladder Disease, HTN, Kidney Stones, Migraine, Chronic Kidney Disease, Chronic Pain Surgical History: Cholecystectomy (Laparoscopic), Endoscopy - [facility] Procedures EYELID REPAIR NEC (04/29/00) INJECT/INFUSE NEC (07/20/13) MYRINGOTOMY W INTUBATION (07/18/03) OTOSCOPY (12/14/03) REMOVE EYELID LESION NOS (04/29/00) Family History: States: No Known Family Hx - Social History Hx Tobacco Use: No Hx Alcohol Use: No Hx Substance Use: No - Immunization History Hx Tetanus Toxoid Vaccination: No Hx Influenza Vaccination: No Hx Pneumococcal Vaccination: No Review Of Systems Constitutional: Negative for: Fever, Chills Skin: Positive for: Other (burning sensation to b/l breasts and nipples) Physical Exam - Physical Exam Appears: Non-toxic, No Acute Distress Skin: Warm, Dry, No Rash Head: Normacephalic Eye(s): bilateral: Normal Inspection Nose: Normal Oral Mucosa: Moist Neck: Supple Chest: Symmetrical, No Tenderness, No Ecchymosis, No Subcutaneous Emphysema, No Other (erythema ) Cardiovascular: Rhythm Regular Respiratory: Normal Breath Sounds, No Rales, No Rhonchi, No Wheezing Extremity: Bilateral: Atraumatic, Normal ROM Neurological/Psych: Oriented x3, Normal Speech Gait: Steady ED Course And Treatment O2 Sat by Pulse Oximetry: 96 (RA) Pulse Ox Interpretation: Normal Medical Decision Making Medical Decision Making: Patient asking for shot for inflammation and pain. Plan - Decadron 8mg IM On re-examination, patient is resting comfortably in no acute distress. Patient reports improvement of symptoms. Patient feels comfortable going home and will be discharged. Patient given follow up instructions. Instructed to return to ER if symptoms worsen or new symptoms arise. Disposition Counseled Patient/Family Regarding: Diagnosis, Need For Followup - Disposition Referrals: Abel Ayoub MD [Staff Provider] - Disposition: HOME/ ROUTINE Disposition Time: 16:53 Condition: STABLE Prescriptions: DiphenhydrAMINE [Benadryl] 25 mg PO Q4 PRN #30 cap PRN Reason: Rash Instructions: Skin Rash (DC) Forms: [employer] ([place]) - Clinical Impression Clinical Impression: Skin irritation - PA / GAME PRODUCER / Resident Statement MD/DO has reviewed & agrees with the documentation as recorded. - Scribe Statement The provider has reviewed the documentation as recorded by the Scribe Amie Li All medical record entries made by the Scribe were at my direction and personally dictated by me. I have reviewed the chart and agree that the record accurately reflects my personal performance of the history, physical exam, medical decision making, and the department course for this patient. I have also personally directed, reviewed, and agree with the discharge instructions and disposition.
== END 2018-09-04 17:02 | disposition home or self-care (01) ==
LOC: C.ER 16:02
DX: L98.9 Disorder of the skin and subcutaneous tissue, unspecified (principal)
CPT/HCPCS: 96372; 99283; J1100

== ENCOUNTER 2018-11-15 07:59 | Emergency (ER) | payer MEDICARE, OTHER | END 2018-11-15 11:34 | disposition home or self-care (01) | LOC: C.ER 07:59 ==

== ENCOUNTER 2019-01-05 16:02 | Outpatient (CLI) | payer MEDICARE, SELFPAY | END 2019-01-05 16:03 | disposition home or self-care (01) | LOC: C.MRIC 16:02 | DX: M25.561 Pain in right knee (principal); M54.16 Radiculopathy, lumbar region; M54.5 Low back pain ==

== ENCOUNTER 2019-01-07 11:01 | Outpatient (CLI) | payer MEDICARE, SELFPAY | END 2019-01-07 11:02 | disposition home or self-care (01) | LOC: C.MRIC 11:01 | DX: M54.12 Radiculopathy, cervical region (principal) ==

== ENCOUNTER 2019-01-11 21:30 | Emergency (ER) | payer MEDICARE, SELFPAY ==
[2019-01-11 21:49] VITALS: BMI 30.7
[2019-01-11 21:51] VITALS: BP 168/106; PULSE 91; RESP 18; TEMP 98; O2SAT 97
[2019-01-11 22:29] LABS: SQUAMOUS EPITHIAL < 1 /hpf (0-5); URINE BILIRUBIN NEGATIVE (NEGATIVE); URINE BLOOD NEGATIVE (NEGATIVE); URINE CLARITY Clear (Clear); URINE COLOR Yellow (YELLOW); URINE GLUCOSE (UA) NORMAL (Normal); URINE LEUKOCYTE ESTERASE TRACE Leu/uL (Negative); URINE PROTEIN NEGATIVE (NEGATIVE); URINE UROBILINOGEN NORMAL mg/dL (0.2-1.0)
--- NOTE | 2019-01-11 22:42 | C.PDOC ---
Time Seen by Provider: 01/11/19 21:34 Chief Complaint (Nursing): High Blood Pressure Past Medical History Vital Signs: Last Vital Signs Temp 98.0 F 01/11/19 21:44 Pulse 91 H 01/11/19 21:44 Resp 18 01/11/19 21:44 BP 168/106 H 01/11/19 21:44 Pulse Ox 97 01/11/19 21:44 Primary Care Provider: Abel Ayoub - Medical History PMH: Anxiety, Arthritis, Asthma, Back Problems, Depression, Fibromyalgia, Gall Bladder Disease, HTN, Kidney Stones, Migraine, Chronic Kidney Disease, Chronic Pain Surgical History: Cholecystectomy (Laparoscopic), Endoscopy - [facility] Procedures EYELID REPAIR NEC (04/29/00) INJECT/INFUSE NEC (07/20/13) MYRINGOTOMY W INTUBATION (07/18/03) OTOSCOPY (12/14/03) REMOVE EYELID LESION NOS (04/29/00) Family History: States: Unknown Family Hx - Social History Hx Tobacco Use: No Hx Alcohol Use: No Hx Substance Use: No - Immunization History Hx Tetanus Toxoid Vaccination: No Hx Influenza Vaccination: No Hx Pneumococcal Vaccination: No ED Course And Treatment - Laboratory Results Lab Results: Urine Color Yellow (YELLOW) 01/11/19 22:02 Urine Clarity Clear (Clear) 01/11/19 22:02 Urine pH 6.0 (5.0-8.0) 01/11/19 22:02 Ur Specific [employer] 1.006 (1.003-1.030) 01/11/19 22:02 Urine Protein Negative mg/dL (NEGATIVE) 01/11/19 22:02 Urine Glucose (UA) Normal mg/dL (Normal) 01/11/19 22:02 Urine Ketones Negative mg/dL (NEGATIVE) 01/11/19 22:02 Urine Blood Negative (NEGATIVE) 01/11/19 22:02 Urine Nitrate Negative (NEGATIVE) 01/11/19 22:02 Urine Bilirubin Negative (NEGATIVE) 01/11/19 22:02 Urine Urobilinogen Normal mg/dL (0.2-1.0) 01/11/19 22:02 Ur Leukocyte Esterase Trace Tracy/uL (Negative) 01/11/19 22:02 Urine WBC (Auto) 3 /hpf (0-5) 01/11/19 22:02 Urine RBC (Auto) < 1 /hpf (0-3) 01/11/19 22:02 Ur Squamous Epith Cells < 1 /hpf (0-5) 01/11/19 22:02 Lab Interpretation: Normal (ua neg.) O2 Sat by Pulse Oximetry: 97 Medical Decision Making Medical Decision Making: ? urinary frequency UA neg chronic anxiety extensive anxiety med regimen chronic pain Extensive narcotic pain regimen ? rash No rash noted ? Psych bizarre and various seemingly confabulatory complaints with normal findings. Disposition Doctor Will See Patient In The: Office Counseled Patient/Family Regarding: Studies Performed, Diagnosis - Disposition Disposition: HOME/ ROUTINE Disposition Time: 22:42 Condition: GOOD - Clinical Impression Clinical Impression: Urinary frequency
--- NOTE | 2019-01-11 22:45 | C.PDOC ---
History Of Present Illness 58 year old female presents complaining of urinary frequency associated with vague belly obesity and mild rash due to motrin for the last 2 days but not now. Patient on extensive psych anxiety and chronic pain regiment, had essentially normal MRI of cervical spine, LS spine, and knee earlier this week. [place], patient has extensive percocet and xanax prescriptions from five different prescribers. Time Seen by Provider: 01/11/19 21:34 Chief Complaint (Nursing): High Blood Pressure History Per: Patient History/Exam Limitations: no limitations Onset/Duration Of Symptoms: Days Current Symptoms Are (Timing): Still Present Recent travel outside of the [place]: No Past Medical History Reviewed: Historical Data, Nursing Documentation, Vital Signs Vital Signs: Last Vital Signs Temp 98.0 F 01/11/19 21:44 Pulse 91 H 01/11/19 21:44 Resp 18 01/11/19 21:44 BP 168/106 H 01/11/19 21:44 Pulse Ox 97 01/11/19 22:42 Primary Care Provider: Abel Ayoub - Medical History PMH: Anxiety, Arthritis, Asthma, Back Problems, Depression, Fibromyalgia, Gall Bladder Disease, HTN, Kidney Stones, Migraine, Chronic Kidney Disease, Chronic Pain Surgical History: Cholecystectomy (Laparoscopic), Endoscopy - [facility] Procedures EYELID REPAIR NEC (04/29/00) INJECT/INFUSE NEC (07/20/13) MYRINGOTOMY W INTUBATION (07/18/03) OTOSCOPY (12/14/03) REMOVE EYELID LESION NOS (04/29/00) Family History: States: Unknown Family Hx - Social History Hx Tobacco Use: No Hx Alcohol Use: No Hx Substance Use: No - Immunization History Hx Tetanus Toxoid Vaccination: No Hx Influenza Vaccination: No Hx Pneumococcal Vaccination: No Review Of Systems Constitutional: Negative for: Fever, Chills Cardiovascular: Negative for: Chest Pain, Palpitations Respiratory: Negative for: Cough, Shortness of Breath Gastrointestinal: Negative for: Nausea, Vomiting Genitourinary: Positive for: Frequency Neurological: Negative for: Weakness, Numbness Physical Exam - Physical Exam Appears: Non-toxic, Other (circumforaneous, confabulatory) Skin: Normal Color, Warm, No Rash Head: Atraumatic, Normacephalic Eye(s): bilateral: Normal Inspection Oral Mucosa: Moist Neck: Normal, Supple Chest: Symmetrical, No Tenderness Cardiovascular: Rhythm Regular Respiratory: Normal Breath Sounds, No Rales, No Rhonchi, No Wheezing Gastrointestinal/Abdominal: Soft, No Tenderness, Other (Obese) Extremity: No Pedal Edema Neurological/Psych: Oriented x3, Normal Speech Gait: Steady (w/o pain) ED Course And Treatment - Laboratory Results Lab Results: Urine Color Yellow (YELLOW) 01/11/19 22:02 Urine Clarity Clear (Clear) 01/11/19 22:02 Urine pH 6.0 (5.0-8.0) 01/11/19 22:02 Ur Specific [place] 1.006 (1.003-1.030) 01/11/19 22:02 Urine Protein Negative mg/dL (NEGATIVE) 01/11/19 22:02 Urine Glucose (UA) Normal mg/dL (Normal) 01/11/19 22:02 Urine Ketones Negative mg/dL (NEGATIVE) 01/11/19 22:02 Urine Blood Negative (NEGATIVE) 01/11/19 22:02 Urine Nitrate Negative (NEGATIVE) 01/11/19 22:02 Urine Bilirubin Negative (NEGATIVE) 01/11/19 22:02 Urine Urobilinogen Normal mg/dL (0.2-1.0) 01/11/19 22:02 Ur Leukocyte Esterase Trace Tracy/uL (Negative) 01/11/19 22:02 Urine WBC (Auto) 3 /hpf (0-5) 01/11/19 22:02 Urine RBC (Auto) < 1 /hpf (0-3) 01/11/19 22:02 Ur Squamous Epith Cells < 1 /hpf (0-5) 01/11/19 22:02 O2 Sat by Pulse Oximetry: 97 (Room air) Pulse Ox Interpretation: Normal Medical Decision Making Medical Decision Making: ? urinary frequency UA neg chronic anxiety extensive anxiety med regimen chronic pain Extensive narcotic pain regimen ? rash No rash noted ? Psych bizarre and various seemingly confabulatory complaints with normal findings. Disposition - Disposition Referrals: Abel Ayoub MD [Staff Provider] - Additional Instructions: NO UTI noted on urinalysis today no rash follow-up with Dr. Ayoub Forms: General Discharge Instructions, [facility] (Guinean) - Clinical Impression Clinical Impression: Urinary frequency - Scribe Statement The provider has reviewed the documentation as recorded by the Scribe Tima Medrano All medical record entries made by the Scribe were at my direction and personally dictated by me. I have reviewed the chart and agree that the record accurately reflects my personal performance of the history, physical exam, medical decision making, and the department course for this patient. I have also personally directed, reviewed, and agree with the discharge instructions and disposition.
== END 2019-01-11 22:43 | disposition home or self-care (01) ==
LOC: C.ER 21:30
DX: R35.0 Frequency of micturition (principal)